=== PATIENT | female | born 1970 | race African-American/Black ===

== ENCOUNTER 2018-03-30 10:28 | Emergency (ER) | payer BC ==
[2018-03-30 11:04] VITALS: BP 104/74; PULSE 72; TEMP 98.9; BMI 34.7
[2018-03-30] MEDS ORDERED: SODIUM CHLORIDE 0.9% 500 ML INFUS.BAG IV ONE (12:47)
[2018-03-30] MEDS ORDERED: ACETAMINOPHEN 1000 MG/100 ML VIAL (NON FORMULARY) IVPB ONE (12:47)
[2018-03-30] MEDS ORDERED: ACETAMINOPHEN INJECTION 100 ML IVPB ONE (12:57)
--- NOTE | 2018-03-30 14:09 | PDOC ---
History of Present Illness - General Chief Complaint: Migraine Headache Stated Complaint: MIGRAINE HEADACHE Time Seen by Provider: 03/30/18 11:16 - History of Present Illness Initial Comments: 47-year-old female morbidly's presents for evaluation of headache times one day. She states she gets migraines however this has not gone away and been refractory to Tylenol at home. She states she took Tylenol last night with no relief. Association with nausea and photophobia 03/30/18 14:03 Past History - Past Medical History Allergies/Adverse Reactions: Allergies Allergy/AdvReac Type Severity Reaction Status Date / Time No Known Allergies Allergy Verified 03/30/18 11:10 Home Medications: Ambulatory Orders No Home Medications 0 dose .ROUTE UTDICT 09/05/13 Anemia: No Asthma: No Cancer: No Cardiac Disorders: No CVA: No COPD: No CHF: No Dementia: No Diabetes: No GI Disorders: No Disorders: No HTN: No Hypercholesterolemia: No Liver Disease: No Seizures: No Thyroid Disease: No - Surgical History Abdominal Surgery: Yes (SPLENECTOMY 2001-SECONDARY TO ITP) Appendectomy: No Cardiac Surgery: No Cholecystectomy: Yes Lung Surgery: No Neurologic Surgery: No Orthopedic Surgery: No - Suicide/Smoking/Psychosocial Hx Smoking History: Never smoked Have you smoked in the past 12 months: No Hx Alcohol Use: No Drug/Substance Use Hx: No Substance Use Type: Alcohol Hx Substance Use Treatment: No Review of Systems - Review of Systems ABD/GI: Yes: Nausea Neurological: Yes: See HPI, Headache All Other Systems: Reviewed and Negative *Physical Exam - Vital Signs Last Vital Signs Temp Pulse Resp BP Pulse Ox 98.9 F 72 20 104/74 99 03/30/18 11:00 03/30/18 11:00 03/30/18 11:00 03/30/18 11:00 03/30/18 11:00 - Physical Exam Comments: HEAD: NC/AT EYES: Conjuntiva clear, PERRL, EOMI Ears: Canals and TM's normal NOSE: No d/c THROAT: Moist mucous membrances, oral pharanx clear, uvula midline NECK: Supple without adenopathy CARDIAC: S1 S2 LUNGS: CTA Full and Equal breath sounds ABDOMEN: Soft NT ND MS: Full ROM in all joints without edema NEUROLOGIC: No gross sensory or motor deficits, NVID SKIN: Normal color and temperature no lesions or rashes 03/30/18 14:06 ED Treatment Course - ADDITIONAL ORDERS Additional order review: Laboratory Results 03/30/18 11:30 Urine HCG, Qual Negative - RADIOLOGY Radiology Studies Ordered: Category Date Time Status HEAD CT WITHOUT CONTRAST [CT] Stat CT Scan 03/30/18 11:48 Completed - Medications Given in the ED: ED Medications Discontinued Medications Generic Name Dose Route Start Last Admin Trade Name Hilda PRN Reason Stop Dose Admin Acetaminophen 1,000 mg 03/30/18 12:47 03/30/18 13:46 Ofirmev Injection - IVPB 03/30/18 12:48 1,000 mg ONCE ONE Administration Diphenhydramine HCl 25 mg 03/30/18 12:47 03/30/18 13:07 Benadryl Injection - IVPB 03/30/18 12:48 25 mg ONCE ONE Administration Sodium Chloride 1,000 ml 03/30/18 12:47 03/30/18 13:06 Normal Saline - IV 03/30/18 12:48 1,000 ml ONCE ONE Administration Medical Decision Making - Medical Decision Making Symptoms relieved with IV Tylenol, Benadryl, fluids. Discussed CT findings with patient she will follow-up with neurosurgery 03/30/18 14:06 *DC/Admit/Observation/Transfer Diagnosis at time of Disposition: Migraine - Discharge Dispostion Disposition: HOME Condition at time of disposition: Improved Decision to Admit order: No - Referrals Referrals: Serg Verde MD [Primary Care Provider] - Arjun Moulton MD [Staff Physician] - Christopher Hansen MD, FAANS [Staff Physician] - Tim Gupta [Non Staff, Medical] - Chai Kim [Non Staff, Medical] - Devin Espitia MD [Non Staff, Medical] - Devon Newton MD [Non Staff, Medical] - Deejay Mcclain [Non Staff, Medical] - Stephanie Brown MD [Non Staff, Medical] - Deuce Grant MD [Non Staff, Medical] - Luis Daniel Rodriguez [Non Staff, Medical] - Isiah Bazzi MD [Non Staff, Medical] - Benjamin Garcia MD [Non Staff, Medical] - Chava Orellana MD [Non Staff, Medical] - Tee Barron MD [Non Staff, Medical] - Renard Edouard [Staff Physician] - Rick Cardona MD [Non Staff, Medical] - Noah Llanes MD [Staff Physician] - Erik Proctor MD [Non Staff, Medical] - Augusta Raya MD [Non Staff, Medical] - Edenilson Schneider [Staff Physician] - Brandin Draby [Non Staff, Medical] - Renard Wright MD [Non Staff, Medical] - Jackie Mcdonnell [Non Staff, Medical] - Renard Suarez [Non Staff, Medical] - Kera Moreau [Non Staff, Medical] - - Patient Instructions Printed Discharge Instructions: Migraine -- Adult, DI for Migraine Additional Instructions: Return to the emergency room should symptoms worsen or go unresolved. Please follow-up with neurosurgery for further evaluation of her CAT scan. They may want to order an advanced imaging study such as an MRI. Follow-up with your primary care physician once 2 days for further evaluation and treatment of her headaches. I've given you a list of local neurosurgeons in the area. Follow-up with neurosurgery in one to 2 days. - Post Discharge Activity
== END 2018-03-30 14:36 | disposition home or self-care (01) ==
LOC: JERFT 10:28
PROC: 3E033NZ Introduction of Analgesics, Hypnotics, Sedatives into Peripheral Vein, Percutaneous Approach (ICD-10-PCS; principal; 2018-03-30)
PROC: 3E033GC Introduction of Other Therapeutic Substance into Peripheral Vein, Percutaneous Approach (ICD-10-PCS; 2018-03-30)
PROC: 3E0337Z Introduction of Electrolytic and Water Balance Substance into Peripheral Vein, Percutaneous Approach (ICD-10-PCS; 2018-03-30)
DX: G43.909 Migraine, unspecified, not intractable, without status migrainosus (principal)
CPT/HCPCS: 70450-TC; 84703; 99282-25; J0131